=== PATIENT | female | born 1960 | race African-American/Black ===

== ENCOUNTER 2016-11-29 18:15 | Emergency (ER) | payer OTHER ==
[~2016-11-29] VITALS: Ht 165.1 cm; Wt 82.0 kg
[~2016-11-29 18:15] MED LIST: AMANTADINE100 MG PO; AMOXICILLIN250 M1 PO; ATENOLOL25 MG PO; ENALAPRIL5 MG PO; FERROUS SULF325 M2 PO; FLEXERIL10 MG PO; HYDROCHLOROT25 MG PO; HYDROCO/APAP1 T10 PO; LORTAB/VICODIN1 TAB OR; MIRALAX3350 N1 PO; MIRALAX3350 NF PO; NAPROSYN500 MG PO; NO MEDS; ULTRAM50 M1 PO; XANAX0.5 MG PO; ZPAK PO; ZYRTEC-D AL1 PO
[2016-11-29 19:42] LABS: URINE BILIRUBIN - DIPSTICK NEGATIVE (NEGATIVE); URINE BLOOD DIPSTICK TRACE-LYSED (NEGATIVE); URINE CLARITY CLEAR; URINE COLOR YELLOW; URINE GLUCOSE - DIPSTICK NEGATIVE (NEGATIVE); URINE KETONE NEGATIVE (NEGATIVE); URINE NITRITE - DIPSTICK NEGATIVE (Negative); URINE PH 5.5 (4.5-8.0); URINE PROTEIN - DIPSTICK TRACE mg/dL (NEG-TRACE); URINE UROBILINOGEN - DIPSTICK 0.2 E.U./dL (0.2)
[2016-11-29 19:45] LABS: BARBITURATES NEGATIVE (NEGATIVE); COCAINE NEGATIVE (NEGATIVE); METHADONE NEGATIVE (NEGATIVE); OXCYCODONE NEGATIVE (NEGATIVE); TETRAHYDROCANNABIONOL NEGATIVE (NEGATIVE); TRICYLIC ANTIDEPRESSANTS NEGATIVE (NEGATIVE)
[2016-11-29 19:52] LABS: URINE LEUK ESTERASE LARGE (NEGATIVE)
[2016-11-29 19:53] LABS: HEMATOCRIT 36.2 % (37.0-47.0); HEMOGLOBIN 12.2 g/dl (12.0-16.0); IMMATURE GRANULOCYTES 0.3 % (0.0-1.0); MEAN CELL VOLUME 86.6 fL CALC (80.0-100.0); MEAN CORPUSCULAR HGB 29.2 pG CALC (26.0-32.0); MEAN CORPUSCULAR HGB CONC 33.7 g/L CALC (32.0-36.0); NEUT# 4.99 thou/uL (2.00-7.15); RED BLOOD COUNT 4.18 mill/uL (4.20-5.60); RED CELL DISTRI WIDTH 14.1 % (11.5-15.5)
[2016-11-29 19:58] LABS: ALBUMIN 4.7 g/dL (3.2-5.0); ALKALINE PHOSPHATASE 72 u/l (38-126); ANION GAP 16 (6-22 (CALC)); BILIRUBIN, TOTAL 0.4 mg/dL (0.0-1.4); BUN 14 mg/dL (7-17); BUN/CREATININE RATIO 16 (12-20 (CALC)); CALCIUM 9.7 mg/dL (8.4-10.2); CARBON DIOXIDE 25 mmol/l (22-30); CHLORIDE 106 mmol/l (95-108); CREATININE 0.9 mg/dL (0.5-1.0); GFR > 60 ML/MIN (>=60 (CALC)); GFR FOR AFR.AMER. > 60 ML/MIN (>=60 (CALC)); GLUCOSE 78 mg/dL (65-105); SGOT/AST 21 u/l (14-36); SGPT/ALT 31 u/l (9-52); SODIUM 143 mmol/l (137-146); TOTAL PROTEIN 8.6 g/dL (6.3-8.2)
[2016-11-29 19:59] LABS: URINE BACTERIA MODERATE hpf; URINE TRICHOMONAS FEW hpf
[2016-11-29 20:00] LABS: URINE SQUAMOUS EPITHELIAL CELL FEW EPI/hpf (0-FEW)
[2016-11-29 20:10] LABS: MYOGLOBIN 25 ng/mL (0 - 62)
[2016-11-29] MEDS ORDERED: CIPROFLOXACN500 MG PO (20:15)
[2016-11-29 20:24] VITALS: BP 159/87
== END 2016-11-29 20:24 | disposition home or self-care (01) | DRG 305 ==
LOC: ED 18:15
PROVIDERS: Emergency Medicine
DX: I10 Essential (primary) hypertension (principal); N39.0 Urinary tract infection, site not specified

== ENCOUNTER 2017-02-19 05:42 | Observation (INO) | payer OTHER ==
[~2017-02-19] VITALS: Ht 165.1 cm; Wt 98.0 kg
[2017-02-19] VITALS (8 sets, daily range): BP systolic 118–199; BP diastolic 68–93
[~2017-02-19 05:42] MED LIST changes: +CIPROFLOXACN500 MG PO
--- NOTE | 2017-02-19 05:42 | NUR ---
PT STRAIGHT BACK TO ROOM AND TRAIGED.EKG DONE
[2017-02-19 06:21] LABS: HEMATOCRIT 37.8 % (37.0-47.0); HEMOGLOBIN 12.9 g/dl (12.0-16.0); IMMATURE GRANULOCYTES 0.2 % (0.0-1.0); MEAN CELL VOLUME 85.9 fL CALC (80.0-100.0); MEAN CORPUSCULAR HGB 29.3 pG CALC (26.0-32.0); MEAN CORPUSCULAR HGB CONC 34.1 g/L CALC (32.0-36.0); NEUT# 3.79 thou/uL (2.00-7.15); RED BLOOD COUNT 4.4 mill/uL (4.20-5.60); RED CELL DISTRI WIDTH 13.8 % (11.5-15.5)
[2017-02-19 06:42] LABS: BUN 14 mg/dL (7-17); BUN/CREATININE RATIO 14 (12-20 (CALC)); CARBON DIOXIDE 29 mmol/l (22-30); CHLORIDE 106 mmol/l (95-108); GFR 58 ML/MIN (>=60 (CALC)); GFR FOR AFR.AMER. > 60 ML/MIN (>=60 (CALC)); GLUCOSE 106 mg/dL (65-105); POTASSIUM 3.6 mmol/l (3.5-5.1); SODIUM 145 mmol/l (137-146)
[2017-02-19 06:43] LABS: ALBUMIN 4.6 g/dL (3.2-5.0); ALKALINE PHOSPHATASE 73 u/l (38-126); AMYLASE 143 u/l (30-110); ANION GAP 15 (6-22 (CALC)); BILIRUBIN, TOTAL 0.7 mg/dL (0.0-1.4); CALCIUM 9.4 mg/dL (8.4-10.2); LIPASE 174 u/l (23-300); SGOT/AST 27 u/l (14-36); SGPT/ALT 26 u/l (9-52); TOTAL PROTEIN 8.8 g/dL (6.3-8.2)
--- NOTE | 2017-02-19 06:45 | NUR ---
RECEIVED REPORT FROM TAM SOLIMAN. INTRODUCED SELF TO PT AND PERFORMED ASSESSMENT. PT REPORTS PAIN IS 6/10 AND IS ABOUT AN 8 WHEN SHE MOVES OR TAKES A DEEP BREATH. PT DENIES SOB OR DIFFICULTY BREATHING. LUNG SOUNDS CLEAR BILATERALLY, SPO2 100% ON ROOM AIR. ADVISED PT ON UPDATED PLAN OF CARE AND PT VERBALIZES UNDERSTANDING. CALL LIGHT IN REACH.
--- NOTE | 2017-02-19 06:45 | NUR ---
REPORT GIVEN TO TAM SOLIMAN.
[2017-02-19 06:55] LABS: MYOGLOBIN 27 ng/mL (0 - 62)
--- NOTE | 2017-02-19 07:30 | NUR ---
PT REPORTS 6/10 PAIN BUT DENIES WANTING PAIN MEDICATION. DR SHIPLEY. CALL LIGHT IN REACH.
--- NOTE | 2017-02-19 08:35 | NUR ---
PT REPORTS PAIN CONSISTENTLY, DR AWARE AND ORDERS RECEIVED FOR PAIN MED.
--- NOTE | 2017-02-19 09:35 | NUR ---
PT RESTING ON STRETCHER. DENIES QUESTIONS OR COMPLAINTS. CALLL IGHT IN REACH.
[2017-02-19] MEDS ORDERED: LISINOPRIL10 MG PO (10:03)
[2017-02-19] MEDS ORDERED: AMOXICILLIN500 MG PO (10:04)
--- NOTE | 2017-02-19 10:34 | NUR ---
REPORT PROVIDED TO TAM HALL
--- NOTE | 2017-02-19 10:45 | NUR ---
Admission Note Report Given to: SBAR PRINTED TO FLOOR Transported by: Wheelchair X Stretcher Transported with: X Nurse Transporter X Patent IV O2 X Psychiatric Nursing Assistant
--- NOTE | 2017-02-19 11:10 | NUR ---
PATIENT TO ICE MED/SURG OVERFLOW. AMBULATORY TO BED. INDPENDANT IN CARE. PT ORIENTED TO ROOM. UP TO BR VOIDED 600ML. PLACED ON CONT CARDIAC MONITORING. B/P AND O2 SAT. POC DISCUSSED. ADMISSION ASSESSMENT DONE. PT COOPERATIVE WITH CARE. NO COMPLAINTS. EDUCATION DONE.
--- NOTE | 2017-02-19 12:00 | NUR ---
LABS DRAWN ORDERED
--- NOTE | 2017-02-19 13:35 | NUR ---
EKG DONE BY RT.
--- NOTE | 2017-02-19 17:33 | NUR ---
DR SY MORALES ON PATIENT. DISCUSS POC. PT STABLE. NO COMPLAINTS. VSS. SINUS NATHANIEL ON MONITOR. LAB IN TO DRAW THIRD TROP.
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
--- NOTE | 2017-02-19 21:50 | NUR ---
PT. RESTING IN BED WITH EYES CLOSED. RESPS EVEN AND UNLABORED. SKIN WARM AND DRY. SIG OTHER REMAINS AT BEDSIDE AT THIS TIME. PROVIDED WITH RECLINER AND BLANKET AT THIS TIME. PT. VS REMAINS STABLE. CALL LIGHT REMAINS WITHIN REACH. REMAINS SINUS ON THE MONITOR WITHOUT ECTOPY. WILL CONTINUE TO MONITOR.
[2017-02-20] VITALS: BP 122/76
--- NOTE | 2017-02-20 01:35 | NUR ---
PT. RESTING IN BED WITH EYES CLOSED. BP REMAINS STABLE. RESPS REMAIN EVEN AND UNLABORED. AROUSABLE TO LIGHT VERBAL STIMULI. PT. BRADYCARDIC AT THIS TIME WITH HR BETWEEN 45-55. REMAINS SINUS. CALL LIGHT REMAINS WITHIN REACH.
--- NOTE | 2017-02-20 04:10 | NUR ---
PT. REMAINS ROUSABLE TO LIGHT VERBAL STIMULI. RESPS REMAINS EVEN AND UNLABORED. VSS. BP 117/52. REMAIN SINUS NATHANIEL ON THE MONITOR. DENIES COMPLAINTS OF CHEST PAIN OR NEED AT THIS TIME. SIG OTHER REMAINS AT BEDSIDE AT THIS TIME.
[2017-02-20 05:35] LABS: URINE BILIRUBIN - DIPSTICK NEGATIVE (NEGATIVE); URINE BLOOD DIPSTICK NEGATIVE (NEGATIVE); URINE CLARITY TURBID; URINE COLOR YELLOW; URINE GLUCOSE - DIPSTICK NEGATIVE (NEGATIVE); URINE KETONE NEGATIVE (NEGATIVE); URINE LEUK ESTERASE MODERATE (NEGATIVE); URINE NITRITE - DIPSTICK NEGATIVE (Negative); URINE PH 5.5 (4.5-8.0); URINE PROTEIN - DIPSTICK NEGATIVE (NEG-TRACE); URINE UROBILINOGEN - DIPSTICK 0.2 E.U./dL (0.2)
[2017-02-20 05:43] LABS: URINE BACTERIA MODERATE hpf; URINE MUCUS FEW hpf (NONE-FEW); URINE RBC 0-2 RBC/hpf (0-5); URINE SQUAMOUS EPITHELIAL CELL MANY EPI/hpf (0-FEW); URINE WBC 50-100 WBC/hpf (0-5)
[2017-02-20 05:47] LABS: ALBUMIN 3.8 g/dL (3.2-5.0); ALKALINE PHOSPHATASE 67 u/l (38-126); ANION GAP 14 (6-22 (CALC)); BILIRUBIN, TOTAL 0.5 mg/dL (0.0-1.4); BUN 14 mg/dL (7-17); BUN/CREATININE RATIO 14 (12-20 (CALC)); CALCIUM 9.3 mg/dL (8.4-10.2); CALCULATED LDLCHOLESTEROL 91 mg/dL (62-129 (CALC)); CARBON DIOXIDE 29 mmol/l (22-30); CHLORIDE 104 mmol/l (95-108); CHOLESTEROL HDL RATIO 2.5 (<4.4 (CALC)); CREATININE 1.1 mg/dL (0.5-1.0); GFR 52 ML/MIN (>=60 (CALC)); GFR FOR AFR.AMER. > 60 ML/MIN (>=60 (CALC)); GLUCOSE 104 mg/dL (65-105); HDL CHOLESTEROL 70 mg/dL (>=40); POTASSIUM 3.8 mmol/l (3.5-5.1); SGOT/AST 15 u/l (14-36); SGPT/ALT 26 u/l (9-52); SODIUM 144 mmol/l (137-146); TOTAL CHOLESTEROL 177 mg/dl (0-199); TOTAL PROTEIN 7.4 g/dL (6.3-8.2); TOTAL TRIGLYCERIDES 75 mg/dl (30-149); VLDL CHOLESTROL 15 mg/dl (2-49 (CALC))
--- NOTE | 2017-02-20 06:22 | NUR ---
ALL LAB VALUES REVIEWED WITH PATIENT. CONTINUES TO DENY PAIN UNLESS WITH DEEP INSPIRATION OR POSITION. DENIES C/O SOB OR OTHER ANGINAL EQUIVALENTS. VSS. PT. DENIES COMPLAINT OR NEED AT THIS TIME. THANKFUL FOR CARE. CALL LIGHT REMAINS WITHIN REACH.
--- NOTE | 2017-02-20 07:20 | NUR ---
PT ALERT AND ORIENTED RESTING IN BED, AM ASSESSMENT COMPLETED, SEE INTERVENTIONS, SKIN WARM DRY AND INTACT, IV SITE INTACT SALINE LOCKED, VS STABLE, TELE CONTINUES READING SB RATE 50-60'S, DENIES PAIN STATES SHE HAS SOME "SORENESS WITH COUGHING AND DEEP BREATHING" BUT NO CHEST PAIN, CALL BACON WITHIN REACH, SAFETY MEASURES REINFORCED, WILL CONTINUE TO MONITOR.
--- NOTE | 2017-02-20 08:00 | NUR ---
SET UP ASSIST FOR AM MEAL PROVIDED, WILL CONTINUE TO MONITOR
--- NOTE | 2017-02-20 08:52 | NUR ---
TOLERATED AM MEAL WELL, DOZING INTERMITTENLY, CALL BACON WITHIN REACH
--- NOTE | 2017-02-20 09:18 | NUR ---
PT OOB AMBULATES TO BATHROOM WITH STEADY GAIT. VOIDS LARGE AMOUNT URINE W/O INCIDENT, BACK TO BED INDEPENDENTLY, REPOSITIONSS SELF FOR COMFORT, CALL BACON WITHIN REACH
--- NOTE | 2017-02-20 09:20 | NUR ---
IN TO SEE PATIENT, PLAN OF CARE DISCUSSED INCLUDING D/C TODAY, CALL BACON WITHIN REACH SPOUSE AT BEDSIDE
[2017-02-20] MEDS ORDERED: ASPIRIN 81 LOW81 MG PO (09:27)
--- NOTE | 2017-02-20 09:55 | NUR ---
Discharge instructions given. Patient verbalizes understanding of same. Discharged in stable condition via Wheelchair to Home with spouse. All belongings sent with pt.
== END 2017-02-20 09:55 | disposition home or self-care (01) | DRG 313 ==
LOC: ED 05:42 → ED-I 09:32 → ED 09:42 → ICU 09:43
PROVIDERS: Emergency Medicine; ADMIT Internal Medicine Geriatric Medicine; ATTEND Internal Medicine Geriatric Medicine
DX: R07.9 Chest pain, unspecified (principal); I25.10 Atherosclerotic heart disease of native coronary artery without angina pectoris; I10 Essential (primary) hypertension; D57.3 Sickle-cell trait; E78.5 Hyperlipidemia, unspecified; B19.20 Unspecified viral hepatitis C without hepatic coma
CPT/HCPCS: Q9967

== ENCOUNTER 2017-12-16 14:46 | Emergency (ER) | payer OTHER ==
[~2017-12-16] VITALS: Ht 165.1 cm; Wt 75.0 kg
[~2017-12-16 14:46] MED LIST changes: +AMOXICILLIN500 MG PO; +ASPIRIN 81 LOW81 MG PO; +LISINOPRIL10 MG PO
[2017-12-16] MEDS ORDERED: ATENOLOL50 MG PO (15:46)
[2017-12-16] MEDS ORDERED: FLEXERIL PO (15:49)
[2017-12-16] MEDS ORDERED: TORADOL PO (15:49)
[2017-12-16 15:58] VITALS: BP 138/88
== END 2017-12-16 15:59 | disposition home or self-care (01) | DRG 605 ==
LOC: ED 14:46
DX: S40.012A Contusion of left shoulder, initial encounter (principal); S70.02XA Contusion of left hip, initial encounter; S50.12XA Contusion of left forearm, initial encounter; I10 Essential (primary) hypertension; D57.3 Sickle-cell trait; V49.40XA Driver injured in collision with unspecified motor vehicles in traffic accident, initial encounter

== ENCOUNTER 2018-10-11 08:35 | Emergency (ER) | payer OTHER ==
[~2018-10-11] VITALS: Ht 165.1 cm; Wt 70.0 kg
[~2018-10-11 08:35] MED LIST changes: +ATENOLOL50 MG PO; +FLEXERIL PO; +TORADOL PO
[2018-10-11 09:18] LABS: HEMOGLOBIN 11.6 g/dl (12.0-16.0); IMMATURE GRANULOCYTES 0.4 % (0.0-5.0); MEAN CELL VOLUME 86.2 fL CALC (80.0-100.0); MEAN CORPUSCULAR HGB 28.6 pG CALC (26.0-32.0); MEAN CORPUSCULAR HGB CONC 33.1 g/L CALC (32.0-36.0); NEUT# 3.93 thou/uL (2.00-7.15); RED BLOOD COUNT 4.06 mill/uL (4.20-5.60)
[2018-10-11 09:39] LABS: ANION GAP 10 (6-22 (CALC)); BUN 11 mg/dL (7-17); BUN/CREATININE RATIO 12 (12-20 (CALC)); CARBON DIOXIDE 28 mmol/l (22-30); CHLORIDE 108 mmol/l (95-108); CREATININE 0.9 mg/dL (0.5-1.0); GFR > 60 ML/MIN (>=60 (CALC)); GFR FOR AFR.AMER. > 60 ML/MIN (>=60 (CALC)); POTASSIUM 3.9 mmol/l (3.5-5.1); SODIUM 142 mmol/l (137-146)
[2018-10-11] MEDS ORDERED: HYDROCHLOROT12.5 M1 PO (10:02)
[2018-10-11 10:11] VITALS: BP 152/85
== END 2018-10-11 10:12 | disposition home or self-care (01) | DRG 305 ==
LOC: ED 08:35
PROVIDERS: Family Medicine
DX: I10 Essential (primary) hypertension (principal); S46.911A Strain of unspecified muscle, fascia and tendon at shoulder and upper arm level, right arm, initial encounter; D57.3 Sickle-cell trait; X58.XXXA Exposure to other specified factors, initial encounter

== ENCOUNTER 2019-06-18 | Emergency (ER) | payer OTHER ==
[~2019-06-18] MED LIST changes: +HYDROCHLOROT12.5 M1 PO
[2019-06-18] MEDS ORDERED: MOTRIN400 MG/TAB PO ×2 (23:05)
== END 2019-06-18 23:17 | disposition home or self-care (01) | DRG 556 ==
DX: M79.18 Myalgia, other site (principal); I10 Essential (primary) hypertension; V53.5XXA Driver of pick-up truck or van injured in collision with car, pick-up truck or van in traffic accident, initial encounter

== ENCOUNTER 2019-12-20 00:06 | Emergency (ER) | payer BC ==
[~2019-12-20] VITALS: Ht 165.1 cm; Wt 72.7 kg
[~2019-12-20 00:06] MED LIST changes: +MOTRIN400 MG/TAB PO
[2019-12-20 00:51] LABS: HEMOGLOBIN 11.1 g/dl (12.0-16.0); IMMATURE GRANULOCYTES 0.4 % (0.0-5.0); MEAN CELL VOLUME 86.3 fL CALC (80.0-100.0); MEAN CORPUSCULAR HGB 28.2 pG CALC (26.0-32.0); MEAN CORPUSCULAR HGB CONC 32.6 g/dL CAL (32.0-36.0); NEUT# 7.37 thou/uL (2.00-7.15); RED BLOOD COUNT 3.94 mill/uL (4.20-5.60); RED CELL DISTRI WIDTH 14.9 % (11.5-15.5)
[2019-12-20 00:56] LABS: URINE BILIRUBIN - DIPSTICK NEGATIVE (NEGATIVE); URINE COLOR YELLOW; URINE GLUCOSE - DIPSTICK NEGATIVE (NEGATIVE); URINE KETONE NEGATIVE (NEGATIVE); URINE NITRITE - DIPSTICK NEGATIVE (Negative); URINE PH 8.5 (4.5-8.0); URINE PROTEIN - DIPSTICK NEGATIVE (NEG-TRACE); URINE SPECIFIC GRAVITY 1.015; URINE UROBILINOGEN - DIPSTICK 0.2 E.U./dL (0.2)
[2019-12-20 00:59] LABS: URINE LEUK ESTERASE SMALL (NEGATIVE)
[2019-12-20 01:00] LABS: URINE BLOOD DIPSTICK NEGATIVE (NEGATIVE); URINE RBC 0-2 RBC/hpf (0-5)
[2019-12-20 01:01] LABS: URINE BACTERIA FEW hpf; URINE EPITHELIAL CELLS FEW EPI/hpf (0-FEW)
[2019-12-20 01:10] LABS: ALBUMIN 4.7 g/dL (3.2-5.0); ALKALINE PHOSPHATASE 72 u/l (38-126); AMYLASE 132 u/l (30-110); ANION GAP 10 (6-22 (CALC)); BILIRUBIN, TOTAL 0.3 mg/dL (0.0-1.4); BUN 15 mg/dL (7-17); BUN/CREATININE RATIO 17 (12-20 (CALC)); CARBON DIOXIDE 31 mmol/l (22-30); CHLORIDE 103 mmol/l (95-108); CREATININE 0.9 mg/dL (0.5-1.0); GFR > 60 ML/MIN (>=60 (CALC)); GFR FOR AFR.AMER. > 60 ML/MIN (>=60 (CALC)); LIPASE 215 u/l (23-300); POTASSIUM 3.7 mmol/l (3.5-5.1); SGOT/AST 20 u/l (14-36); SODIUM 141 mmol/l (137-146); TOTAL PROTEIN 8.4 g/dL (6.3-8.2)
[2019-12-20 01:22] LABS: MYOGLOBIN 15 ng/mL (0 - 62)
[2019-12-20] MEDS ORDERED: FLEXERIL PO (03:57)
[2019-12-20] MEDS ORDERED: NAPROXEN500 MG PO (03:57)
[2019-12-20] MEDS ORDERED: KEFLEX500 M1 PO (03:57)
[2019-12-20 04:29] VITALS: BP 131/73
== END 2019-12-20 04:40 | disposition home or self-care (01) | DRG 690 ==
LOC: ED 00:06
PROVIDERS: Emergency Medicine
DX: N39.0 Urinary tract infection, site not specified (principal); M79.10 Myalgia, unspecified site; I10 Essential (primary) hypertension; D57.3 Sickle-cell trait
CPT/HCPCS: Q9967

== ENCOUNTER → 2020-04-26 | Day surgery (SDC) | payer BC ==
[~2020-04-26] MED LIST changes: +KEFLEX500 M1 PO; +NAPROXEN500 MG PO; +TRAMADOL HCL50 MG PO; +TRAZODONE50 MG PO
== END | disposition home or self-care (01) | DRG 392 ==
LOC: ENDO 09:01 → ORM 14:30
PROVIDERS: ATTEND Internal Medicine Gastroenterology
DX: R10.31 Right lower quadrant pain (principal); K59.00 Constipation, unspecified; K21.9 Gastro-esophageal reflux disease without esophagitis; D64.9 Anemia, unspecified; I10 Essential (primary) hypertension; B18.2 Chronic viral hepatitis C; Z86.010 Personal history of colon polyps; Z53.09 Procedure and treatment not carried out because of other contraindication

== ENCOUNTER 2024-05-20 10:45 | Emergency (ER) | payer BC ==
[~2024-05-20] VITALS: Ht 165.1 cm; Wt 72.0 kg
[2024-05-20 10:57] VITALS: BP 144/93
[2024-05-20 11:00] VITALS: BP 155/93
[2024-05-20 11:30] VITALS: BP 140/88
[2024-05-20 12:00] VITALS: BP 146/85
[2024-05-20 12:30] VITALS: BP 159/90
[2024-05-20] MEDS ORDERED: TAM75CAP PO ×2 (12:30→13:01)
[2024-05-20 12:51] VITALS: BP 159/90
== END 2024-05-20 13:42 | disposition home or self-care (01) | DRG 153 ==
LOC: ED 10:45
DX: J11.1 Influenza due to unidentified influenza virus with other respiratory manifestations (principal); I10 Essential (primary) hypertension; Z20.822 Contact with and (suspected) exposure to COVID-19

== ENCOUNTER 2024-07-16 14:38 | Emergency (ER) | payer BC ==
[2024-07-16] VITALS (8 sets, daily range): BP systolic 114–147; BP diastolic 57–80
[~2024-07-16] VITALS: Ht 165.1 cm; Wt 75.0 kg
[~2024-07-16 14:38] MED LIST changes: +TAM75CAP PO
[2024-07-16] MEDS ORDERED: NORVASC2.5 M1 PO (15:11)
[2024-07-16] MEDS ORDERED: oxyCODONE 5MG/ ACETAMINOPHEN 325MG TAB PO ONE (15:55)
[2024-07-16] MEDS ORDERED: ONDANSETRON 4 MG/TAB ODT PO ONE (15:55)
[2024-07-16 16:34] LABS: BASO% 0.2 % (0-3); EOS% 1.8 % (0-8); HEMATOCRIT 33.3 % (37.0-47.0); HEMOGLOBIN 11.2 g/dl (12.0-16.0); IMMATURE GRANULOCYTES 0.2 % (0.0-5.0); LYMPH% 18.9 % (15-41); MEAN CELL VOLUME 86.9 fL CALC (80.0-100.0); MEAN CORPUSCULAR HGB 29.2 pG CALC (26.0-32.0); MEAN CORPUSCULAR HGB CONC 33.6 g/dL CAL (32.0-36.0); MONO% 7.1 % (2-13); NEUT# 9.84 thou/uL (2.00-7.15); NEUT% 71.8 % (42-76); RED BLOOD COUNT 3.83 mill/uL (4.20-5.60); RED CELL DISTRI WIDTH 14.4 % (11.5-15.5)
[2024-07-16] MEDS ORDERED: methylPREDNISolone SODIUM SUCC 125 MG/2 ML SDV IM ONE (16:35)
[2024-07-16 16:49] LABS: ALBUMIN 4.6 g/dL (3.2-5.0); CREATININE 1.2 mg/dL (0.5-1.0); POTASSIUM 3.3 mmol/l (3.5-5.1); TOTAL PROTEIN 8.7 g/dL (6.3-8.2)
[2024-07-16 16:52] LABS: BILIRUBIN, TOTAL 0.6 mg/dL (0.02-1.3)
[2024-07-16] MEDS ORDERED: PREDNISONE50 MG PO (17:27)
[2024-07-16] MEDS ORDERED: MOTRIN800 MG PO (17:27)
== END 2024-07-16 17:49 | disposition home or self-care (01) | DRG 558 ==
LOC: ED 14:38
PROVIDERS: Nurse Practitioner Family
DX: M77.8 Other enthesopathies, not elsewhere classified (principal); I10 Essential (primary) hypertension